=== PATIENT | male | born 1970 | race American Indian/Alaskan Native ===

== ENCOUNTER 2022-01-13 23:09 | Emergency (ER) | payer SELFPAY ==
[2022-01-13] MEDS ORDERED: SODIUM CHLORIDE 0.9% 1000 ML 1,000 ML IV ONE (23:34)
--- NOTE | 2022-01-13 23:36 | Consultation ---
Medications and Allergies Allergies Allergy/AdvReac Type Severity Reaction Status Date / Time No Known Allergies Allergy Verified 01/13/22 23:33 Physical Examination - Vital Signs Vital Signs: Vital Signs Temp Pulse Resp BP Pulse Ox 98.6 F 91 H 18 206/127 97 01/13/22 23:31 01/13/22 23:31 01/13/22 23:31 01/13/22 23:31 01/13/22 23:31 Assessment and Plan [facility] Consult Note # Demographics Consult Type: Acute Stroke Level 2 (4.5-24 hrs) Patient Location: Emergency Room First Name: Orion Last Name: Austin Date of : 1970 Age: 51 Gender: Male Facility: [facility] Time of Initial Page (): 01/13/2022, 23:29 Time of Return Call ( Time): 01/13/2022, 23:29 # HPI History: 51M says during work today left side would not work normally. No prior similar. # Scores Time of exam and NIHSS (): 01/13/2022, 23:32 Level of Consciousness 1a: [0] = Alert; keenly responsive LOC Questions 1b: [0] = Answers both questions correctly LOC Commands 1c: [0] = Performs both tasks correctly Best Gaze 2: [0] = Normal Visual 3: [0] = No visual loss Facial Palsy 4: [0] = Normal symmetrical movements Motor Arm Left 5a: [1] = Drift Motor Arm Right 5b: [0] = No drift Motor Leg Left 6a: [3] = No effort against gravity Motor Leg Right 6b: [0] = No drift Limb Ataxia 7: [0] = Absent Sensory 8: [1] = Ixqn-uz-mzeftidf sensory loss Best Language 9: [0] = No aphasia Dysarthria 10: [0] = Normal Extinction and Inattention 11: [0] = No abnormality NIHSS Total: 5 VAN Screening: Negative # PMH-FH-SH Past Medical History: Diabetes hypertension # Assessment Impression: Ischemic Stroke (Acute) # Plan Thrombolytic/Intervention: Possible IA candidate Thrombolytic Exclusion (< 3 hour window): time of onset unclear Thrombolytic Exclusion: > 4.5 hours Possible IA Candidate: CTA pending Target Blood Pressure: SBP < 220 Imaging: (urgency: STAT): CT Angiogram Head and CT Angiogram Neck Imaging: (urgency: routine): MRI Brain without contrast Diagnostic Test: echo with bubble study Medication: aspirin 81 mg daily start statin with goal of LDL < 70 Other: permissive hypertension telemetry monitoring I have discussed my recommendations with the referring provider Additional Recommendations: If large vessel occlusion seen on CTA head, urgent consultation with neuro-endovascular specialist is recommended, otherwise admit for further evaluation and management. Disposition: admit # Logistics Telemedicine: Interactive 2 way audio and visual telecommunication technology was utilized during this visit # Demographics First Name: Orion Last Name: Austin Facility: [facility]
--- NOTE | 2022-01-14 00:17 | Cat Scan Report ---
CT head/brain wo con INDICATION / CLINICAL INFORMATION: Stroke symptoms. TECHNIQUE: Axial CT imaging of the brain was obtained without contrast. Coronal and sagittal reformatted imaging obtained and reviewed. All CT scans at this location are performed using CT dose reduction for ALAR A by means of automated exposure control. COMPARISON: None available. FINDINGS: No intracranial hemorrhage, mass or midline shift. No extra-axial fluid collection or suggestion of a cute territorial infarction. There is small area of encephalomalacia within the right frontal lobe mo st likely representing old subcortical infarct. Additionally there is a small area of infarction in t he deep white matter of the left frontal lobe. Ventricular system is unremarkable other than incident al finding of cavum septum lucidum. Basilar cisterns are normal. Moderate cerebral and cerebellar atr ophy noted. Mild microvascular angiopathy present. Visualized paranasal sinuses and mastoid air cells are well aerated and clear. No calvarial abnormali ty. IMPRESSION: 1. No definite area of acute ischemia. No intracranial hemorrhage. 2. Evidence for small old infarcts within the frontal lobes bilaterally. 3. This report was called to Dr. Bains in the ED at 2311 hours PLASTIC FINISHER. Signer Name: Renae Salazar MD Signed: 01/14/2022 12:12 AM Workstation Name: [id number]
[2022-01-14 00:28] LABS: Basophils # (Auto) 0.1 K/mm3 (0.0-0.1); Basophils % (Auto) 0.7 % (0.0-1.8); Eosinophils # (Auto) 0.2 K/mm3 (0.0-0.4); Eosinophils % (Auto) 2.4 % (0.0-4.3); Hematocrit 48.6 % (35.5-45.6); Hemoglobin 15.7 gm/dl (11.8-15.2); Lymphocytes # (Auto) 2.4 K/mm3 (1.2-5.4); Lymphocytes % (Auto) 29.8 % (13.4-35.0); Mean Corpuscular HGB Conc 32 % (32-34); Mean Corpuscular Volume 91 fl (84-94); Monocytes # (Auto) 0.4 K/mm3 (0.0-0.8); Monocytes % (Auto) 5.5 % (0.0-7.3); Platelet Count 188 K/mm3 (140-440); Red Blood Count 5.37 M/mm3 (3.65-5.03)
[2022-01-14 00:45] LABS: Creatine Kinase MB 2.4 ng/mL (0.0-4.0); INR 0.93 (0.87-1.13)
[2022-01-14 00:46] LABS: Partial Thromboplastin Time 30.8 Sec. (24.2-36.6); Thrombin Time 21.5 Sec. (15.1-19.6)
[2022-01-14 00:47] LABS: Alanine Aminotransferase 17 units/L (7-56); Albumin 4.1 g/dL (3.9-5); BUN/Creatinine Ratio 9; Blood Urea Nitrogen 17 mg/dL (9-20); Calcium 8.8 mg/dL (8.4-10.2); Hemolysis Index 13
[2022-01-14] MEDS ORDERED: METOPROLOL TARTRATE 5 MG/5 ML INJ IV ONE (00:48)
--- NOTE | 2022-01-14 00:49 | XRay Report ---
CHEST 1 VIEW INDICATION / CLINICAL INFORMATION: CVA. COMPARISON: None available. FINDINGS: SUPPORT DEVICES: None. HEART / MEDIASTINUM: Mild enlargement of the cardiac silhouette. LUNGS / PLEURA: Low lung volumes. However, the lungs appear grossly clear. Pulmonary vascularity is n ormal. No pneumothorax. ADDITIONAL FINDINGS: No significant additional findings. IMPRESSION: 1. No gross acute pulmonary or pleural disease. Signer Name: Renae Salazar MD Signed: 01/14/2022 12:45 AM Workstation Name: [id number]
--- NOTE | 2022-01-14 00:49 | Cat Scan Report ---
CTA neck without and with intravenous contrast material CLINICAL HISTORY: stroke sx symptoms of left-sided weakness are reported. TECHNIQUE: Following acquisition of a timing bolus 0.625 mm thick contiguous axial scans were obtained from aort ic arch to the skull base during rapid bolus intravenous contrast infusion. In addition to evaluation of axial source images multiplanar reconstructions were produced and reviewed for this report. 3 leisa ne MIP reconstructions were produced and reviewed. Contrast dose report: Omnipaque 350: dose administered not provided,, administered intravenously All CT examinations performed at this facility utilize modulated dose reduction, iterative reconstruc tion or weight-based dosing, as appropriate, to obtain a radiation dose which is as low as can reason ably be achieved. FINDINGS: Limitations: The timing of the scan acquisition relative to the contrast bolus was suboptimal. Dense intravenous contrast enhancement within the left subclavian vein, innominate vein and superior vena c chase obscures detail along the course of the visualized portions of the thoracic aorta and at the orig ins of the great vessels. In the thoracic region much of the contrast is still present within the pul monary arterial circulation. Early scan acquisition on this examination limits evaluation of the prox imal common carotid arteries and proximal vertebral arteries bilaterally. Thoracic aorta: Evaluation is limited as described above. Right carotid artery:No abnormalities are seen along the course of the RCCA, at the right carotid bif urcation or along the cervical portions of the MARCOS. Left carotid artery: No abnormalities are noted along the course of the left common carotid artery, a t the left carotid bifurcation or along the course of the cervical segments of the LICA. Posterior circulation: Visualization of the vertebral arteries is suboptimal. Evaluation of the V1 an d proximal V2 segments of the vertebral arteries is not possible on this examination. Mid and distal V2 segments are unremarkable for the possibility of intra-arterial contrast in the V3 and V4 segments of the left vertebral artery which may be hypoplastic or occluded. Is an absence of enhancement ivan g the course of adjuvant the basilar artery. Thromboembolic occlusion of the V3 and V4 segments of th e vertebral arteries and the basilar excluded. The degree of stenosis, if any, is determined utilizing NASCET like criteria. In this case there is no indication of hemodynamically significant stenosis at the carotid bifurcations. Evaluation of the nonvascular soft tissue structures reveal no abnormality. There is no indication of cervical lymphadenopathy. No abnormalities are seen along the course of the airway. Visualized porti ons of the parotid glands and the submandibular salivary glands have a normal appearance. Thyroid gla nd has a normal appearance. Evaluation of the lung apices reveals no evidence of lung nodule or infil trate. Evaluation of the cervical spine revealed no significant abnormalities. IMPRESSION: 1. No indication of hemodynamically significant stenosis at the carotid bifurcations or elsewhere. 2. Absence of contrast opacification of the V3 and V4 segments of the left vertebral artery and basil ar artery may occasionally occlusion of these vessels. CTA head with intravenous contrast CLINICAL HISTORY: stroke sx symptoms of left-sided weakness are reported. TECHNIQUE: 0.625 mm thick contiguous axial scans were obtained from the skull base to the skull vertex during r apid bolus administration of intravenous contrast material. Multiplanar reconstructions were produced in the coronal and sagittal planes. In addition 3 plane MIP instructions were produced and reviewed for this report. The axial source images and reconstructed images were reviewed for this report. CONTRAST DOSE REPORT: Omnipaque 350: There is administered not provided, administered intravenously. All CT scans at this location are performed using CT dose reduction for [facility] by means of automated e xposure control. FINDINGS: Internal carotid arteries:Christa, cavernous, opthalmic, clinoid and supraclinoid segments of the ICAs have an unremarkable appearance. Middle cerebral arteries:Normal and symmetrical M1 segments of the middle cerebral arteries are demon strated. No abnormalities are seen on evaluation of the insular or opercular branches. Anterior cerebral arteries:Bilaterally symmetrical A1 segments are demonstrated. No abnormalities are seen along the course of the A2 segments or their visualized pericallosal branches. Vertebral arteries: There is an absence of contrast opacification of the V3 and V4 segments of the le ft vertebral artery which may be occluded. Opacification of the V3 and V4 segments of the right vert ebral artery is observed. A right vertebral artery is dominant. Basilar artery:Absence of contrast enhancement is observed over most of the course of the basilar art vicky. Basilar artery occlusion cannot be excluded Posterior cerebral arteries: origin of the posterior cerebral arteries is demonstrated bilatera lly. There is asymmetry of the P2 segments of the posterior cerebral arteries, left smaller than righ t. P3 segment is normally visualized on the right poorly visualized on the left. Consider the possibi lity of occlusion of the P3 segment of the left posterior cerebral artery. [place] of [place]:Not intact. see above. Dural sinuses: Due to timing of scan acquisition versus contrast both levels the dural sinuses are po alexei evaluated on this study. Dural sinus thrombosis cannot be excluded. IMPRESSION: 1. Findings suggest the possibility of left V3 and V4 segment vertebral artery occlusion and basilar artery occlusion as described above. 2. Possible occlusion P3 segment left posterior cerebral artery. 3. I do not identify a large vessel occlusion along the course of the anterior circulation. IMPORTANT FINDING: Time of Communication (CUSTOMER SERVICE DRIVER/CDT): 2340 Central standard time Licensed Practitioner Receiving Report: Rosmery, patient's emergency department nurse. A read back was performed. Signer Name: Alfa Foster MD Signed: 01/14/2022 12:44 AM Workstation Name: [id number]
[2022-01-14] MEDS ORDERED: INSULIN REGULAR, HUMAN 100 UNITS/1 ML IV ONE (01:01)
--- NOTE | 2022-01-14 01:30 | Emergency Department Report ---
ED Neuro Deficit HPI - General Chief Complaint: Neuro Symptoms/Deficit Stated Complaint: LEFT SIDE WEAKNESS/NUMBESS Time Seen by Provider: 01/13/22 23:34 Source: patient Mode of arrival: Ambulatory Limitations: No Limitations - History of Present Illness Initial Comments: pt came in complaining of left sided weakness and numbness, pt dragging his left leg started @ 5pm PT IS [employer] , AT 2 56 PM PER HIS FRIEND, HE NOTICED WEKANESS IN HIS LEFT LEF THEN LEFT ARM NO DYSIRTHRIA , SYMTPMS HASBEEN GETTING SLOWLY WROSE, NO HEAD INJURY -: Gradual, hour(s) (8) Location: left arm, left leg Presenting Symptoms: Present: Weak/Paralyzed One Side History of same: No Place: work Severity: moderate Quality: weak, numb Improves With: none Worsens With: none On Anticoagulants: No Context: sudden onset Associated Symptoms: denies: denies other symptoms, confusion, chest pain, cough, diaphoresis, headaches, loss of appetite, nausea/vomiting Treatments Prior to Arrival: none - Related Data Allergies/Adverse Reactions: Allergies Allergy/AdvReac Type Severity Reaction Status Date / Time No Known Allergies Allergy Verified 01/13/22 23:33 ED Review of Systems ROS: Stated complaint: LEFT SIDE WEAKNESS/NUMBESS Other details as noted in HPI Constitutional: denies: chills, fever Eyes: denies: eye pain, eye discharge, vision change ENT: denies: ear pain, throat pain Respiratory: denies: cough, shortness of breath, wheezing Cardiovascular: denies: chest pain, palpitations Endocrine: no symptoms reported Gastrointestinal: denies: abdominal pain, nausea, diarrhea Genitourinary: denies: urgency, dysuria Musculoskeletal: denies: back pain, joint swelling, arthralgia Skin: denies: rash, lesions Neurological: denies: headache, weakness, paresthesias Psychiatric: denies: anxiety, depression Hematological/Lymphatic: denies: easy bleeding, easy bruising ED Past Medical Hx - Past Medical History Previous Medical History?: Yes Hx Hypertension: Yes Hx Diabetes: Yes - Surgical History Past Surgical History?: Yes Additional Surgical History: left knee surgery - Social History Smoking Status: Never Smoker Substance Use Type: None ED Neuro Physical Exam - General Limitations: No Limitations General appearance: alert, in no apparent distress Suspected Stroke: Yes - Head Head exam: Present: atraumatic, normocephalic - Eye Eye exam: Present: normal appearance - ENT ENT exam: Present: mucous membranes moist - Neck Neck exam: Present: normal inspection - Respiratory Respiratory exam: Present: normal lung sounds bilaterally. Absent: respiratory distress - Cardiovascular Cardiovascular Exam: Present: regular rate, normal rhythm. Absent: systolic murmur, diastolic murmur, rubs, gallop - GI/Abdominal GI/Abdominal exam: Present: soft, normal bowel sounds - Rectal Rectal exam: Present: deferred - Extremities Exam Extremities exam: Present: normal inspection - Back Exam Back exam: Present: normal inspection - Neurological Exam Neurological exam: Present: alert, oriented X3 - NIHSS Assessment Interval: Baseline 1a. Level of Consciousness: alert/keenly responsive 1b. LOC Questions: answers both correctly 1c. LOC Commands: performs tasks correctly 2. Best Gaze: normal 3. Visual: no visual loss 4. Facial Palsy: normal symmetrical movement 5b. Motor Arm Right: no drift 5a. Motor Arm Left: drift 6a. Motor Leg Left: drift 6b. Motor Leg Right: no drift 7. Limb Ataxia: absent 8. Sensory: mild/moderate sensory loss 9. Best Language: mute/global aphasia 10. Dysarthria: normal 11. Extinction/Inattention: no abnormality Total Score: 6 Stroke Severity: Moderate Stroke - Psychiatric Psychiatric exam: Present: normal affect, normal mood - Skin Skin exam: Present: warm, dry, intact, normal color. Absent: rash ED Course Vital Signs 01/13/22 01/14/22 01/14/22 23:31 00:37 01:05 Temperature 98.6 F 97.0 F L Pulse Rate 91 H 78 78 Respiratory 18 15 Rate Blood Pressure 196/114 Blood Pressure 206/127 203/110 [Left] O2 Sat by Pulse 97 95 Oximetry - Lab Data Result diagrams: 01/14/22 00:04 01/14/22 00:04 Lab Results 01/13/22 01/14/22 01/14/22 Range/Units 23:31 00:04 00:04 WBC 8.0 (4.5-11.0) K/mm3 RBC 5.37 H (3.65-5.03) M/mm3 Hgb 15.7 H (11.8-15.2) gm/dl Hct 48.6 H (35.5-45.6) % MCV 91 (84-94) fl MCH 29 (28-32) pg MCHC 32 (32-34) % RDW 15.0 (13.2-15.2) % Plt Count 188 (140-440) K/mm3 Lymph % (Auto) 29.8 (13.4-35.0) % [place] % (Auto) 5.5 (0.0-7.3) % Eos % (Auto) 2.4 (0.0-4.3) % Baso % (Auto) 0.7 (0.0-1.8) % Lymph # (Auto) 2.4 (1.2-5.4) K/mm3 [place] # (Auto) 0.4 (0.0-0.8) K/mm3 Eos # (Auto) 0.2 (0.0-0.4) K/mm3 Baso # (Auto) 0.1 (0.0-0.1) K/mm3 Seg Neutrophils % 61.6 (40.0-70.0) % Seg Neutrophils # 4.9 (1.8-7.7) K/mm3 PT 13.5 (12.2-14.9) Sec. INR 0.93 (0.87-1.13) APTT 30.8 (24.2-36.6) Sec. Thrombin Time 21.5 H (15.1-19.6) Sec. Sodium (137-145) mmol/L Potassium (3.6-5.0) mmol/L Chloride (98-107) mmol/L Carbon Dioxide (22-30) mmol/L Anion Gap mmol/L BUN (9-20) mg/dL Creatinine (0.8-1.3) mg/dL Estimated GFR ml/min BUN/Creatinine Ratio % Glucose (75-100) mg/dL POC Glucose 400 H (70-105) mg/dL Ketones Quantitative (Negative) Calcium (8.4-10.2) mg/dL Total Bilirubin (0.1-1.2) mg/dL AST (5-40) units/L ALT (7-56) units/L Alkaline Phosphatase (35-129) units/L Total Creatine Kinase (55-170) units/L CK-MB (CK-2) (0.0-4.0) ng/mL CK-MB (CK-2) Rel Index (0-4) Troponin T (0.00-0.029) ng/mL NT-Pro-B Natriuret Pep (0-900) pg/mL Total Protein (6.3-8.2) g/dL Albumin (3.9-5) g/dL Albumin/Globulin Ratio % Plasma/Serum Alcohol (0-0.07) % 01/14/22 01/14/22 01/14/22 Range/Units 00:04 00:04 00:04 WBC (4.5-11.0) K/mm3 RBC (3.65-5.03) M/mm3 Hgb (11.8-15.2) gm/dl Hct (35.5-45.6) % MCV (84-94) fl MCH (28-32) pg MCHC (32-34) % RDW (13.2-15.2) % Plt Count (140-440) K/mm3 Lymph % (Auto) (13.4-35.0) % [place] % (Auto) (0.0-7.3) % Eos % (Auto) (0.0-4.3) % Baso % (Auto) (0.0-1.8) % Lymph # (Auto) (1.2-5.4) K/mm3 [place] # (Auto) (0.0-0.8) K/mm3 Eos # (Auto) (0.0-0.4) K/mm3 Baso # (Auto) (0.0-0.1) K/mm3 Seg Neutrophils % (40.0-70.0) % Seg Neutrophils # (1.8-7.7) K/mm3 PT (12.2-14.9) Sec. INR (0.87-1.13) APTT (24.2-36.6) Sec. Thrombin Time (15.1-19.6) Sec. Sodium 133 L (137-145) mmol/L Potassium 4.4 (3.6-5.0) mmol/L Chloride 97.9 L (98-107) mmol/L Carbon Dioxide 28 (22-30) mmol/L Anion Gap 12 mmol/L BUN 17 (9-20) mg/dL Creatinine 2.0 H (0.8-1.3) mg/dL Estimated GFR 36 ml/min BUN/Creatinine Ratio 9 % Glucose 340 H (75-100) mg/dL POC Glucose (70-105) mg/dL Ketones Quantitative Negative (Negative) Calcium 8.8 (8.4-10.2) mg/dL Total Bilirubin 0.30 (0.1-1.2) mg/dL AST 14 (5-40) units/L ALT 17 (7-56) units/L Alkaline Phosphatase 88 (35-129) units/L Total Creatine Kinase 164 (55-170) units/L CK-MB (CK-2) 2.4 (0.0-4.0) ng/mL CK-MB (CK-2) Rel Index 1.4 (0-4) Troponin T < 0.010 (0.00-0.029) ng/mL NT-Pro-B Natriuret Pep 42.39 (0-900) pg/mL Total Protein 6.3 (6.3-8.2) g/dL Albumin 4.1 (3.9-5) g/dL Albumin/Globulin Ratio 1.9 % Plasma/Serum Alcohol < 0.01 (0-0.07) % - EKG Data -: EKG Interpreted by Ga EKG shows normal: sinus rhythm Interpretation: no acute changes, nonspecific ST-T wave sharri, LVH - Radiology Data Radiology results: report reviewed, image reviewed - Medical Decision Making STROKE ALERT ON ARRIVAL HEAD CT NEGATIVE FOR ACUTE BLEED, cta HEAD AND NECK SHOWED LVO ON THE VERTEBRO BASILAR SYSTEM, SPOKE WITH DR REDD ACCEPTED [facility] ENCINAS Critical Care Time: Yes Critical care time in (mins) excluding proc time.: 65 Critical care attestation.: If time is entered above; I have spent that time in minutes in the direct care of this critically ill patient, excluding procedure time. ED Disposition Clinical Impression: CVA (cerebral vascular accident) Disposition: 51 HOSPICE/MEDICAL FACILITY Is pt being admited?: No Does the pt Need Aspirin: No Condition: Stable Referrals: MATT PIERCE MD [Primary Care Provider] - 3-5 Days
[2022-01-14] MEDS ORDERED: hydrALAZINE 20 MG/1 ML INJ ONE (01:32)
[2022-01-14 01:35] LABS: Amphetamine Screen,Urine PRESUMPTIVE NEGATIVE; Benzodiazepines Screen,Urine PRESUMPTIVE NEGATIVE; Cannabinoid Screen,Urine PRESUMPTIVE NEGATIVE; Cocaine Screen,Urine PRESUMPTIVE NEGATIVE; Methadone Screen,Urine PRESUMPTIVE NEGATIVE; Opiate Screen,Urine PRESUMPTIVE NEGATIVE
[2022-01-14] MEDS ORDERED: hydrALAZINE 20 MG/1 ML INJ IV ONE (01:36)
[2022-01-14 01:44] LABS: Bacteria,Urine 1+ /HPF (Negative); Mucus,Urine 1+ /HPF; RBC,Urine < 1.0 /HPF (0.0-6.0)
[2022-01-14 01:54] LABS: Color,Urine Yellow (Yellow)
[2022-01-14 02:29] VITALS: BP 201/114
--- NOTE | 2022-01-14 09:34 | Electrocardiograph Report ---
[facility] Test Date: 2022-01-14 Test Time: 00:10:28 Pat Name: MILLA ROB Department: Room: Gender: M Power Distribution Engineer: KENAN : 1970 Requested By: CHRISTINE MORENO Order Number: [id number] Reading MD: Tavon Spencer Measurements Intervals [place] Rate: 84 P: 38 CO: 164 QRS: 6 QRSD: 85 T: 13 QT: 370 QTc: 436 Interpretive Statements Sinus rhythm Probable left atrial enlargement Probable left ventricular hypertrophy No previous ECG available for comparison Electronically Signed On 01-14-2022 9:34:08 EDT by Tavon Spencer
== END 2022-01-14 02:35 | disposition hospice, inpatient (51) ==
LOC: ED 23:09
DX: I63.9 Cerebral infarction, unspecified (principal); E11.9 Type 2 diabetes mellitus without complications; I10 Essential (primary) hypertension; Z79.899 Other long term (current) drug therapy
CPT/HCPCS: 36415; 70450; 70496; 70498; 71045; 80053; 80307; 81001; 82010; 82550; 82553; 82962; 83880; 84484; 85025; 85610; 85670; 85730; 93005; 96361; 96374; 96375; 99291; J0360; J7030; Q9967; 80320; 99285; G0480; J1815